=== PATIENT | female | born 1945 | race Caucasian/White ===

== ENCOUNTER → 2018-07-15 15:07 | Outpatient (CLI) | payer MEDICARE, SELFPAY ==
--- NOTE | 2018-07-15 15:12 | CT_ITS ---
CT lower leg LT wo con INDICATION: Pain and swelling, redness, cellulitis left lower leg with open sores ITS.REASON: CELLULITIS OF LT LOWER LEG ORDERING PHYSICIAN: Viry Douglas PATIENT AGE: 73 years COMPARISON: None TECHNIQUE: Axial images are obtained without contrast from the knee to the mid ankle. Sagittal and coronal reformatted images are reviewed as well. All CT scans at the facility use one or more dose reduction, viz: automated exposure control, ma/kV adjustment per patient size (including targeted exams where dose is matched to indication, i.e. head), or iterative reconstruction technique. FINDINGS: There is a total knee prosthesis present. Artifact is present from prosthesis. The tibia and fibula have an unremarkable appearance. No lytic or blastic changes are evident. The knee prosthesis appears to be in good position. No fractures are evident. There is some pretibial calcific densities consistent with small phleboliths. No bony erosive changes. There is some mild edema along the lateral aspect of the leg. No localized fluid collections. No soft tissue masses. No soft tissue gas. IMPRESSION: 1. Status post total replacement. The alignment of the prosthesis. 2. Mild soft tissue swelling along the lateral aspect of the ankle and anterior ankle. 3. No evidence of acute osteomyelitis or abscess.
== END ==
PROVIDERS: Family Provider Internal Medicine Adolescent Medicine; PCP Nurse Practitioner Family; Visit Provider Nurse Practitioner Family
DX: L03.116 Cellulitis of left lower limb (principal)
CPT/HCPCS: 73700

== ENCOUNTER → 2018-09-22 11:16 | Outpatient (CLI) | payer MEDICARE, SELFPAY ==
[2018-09-22 13:50] LABS: Alanine Aminotransferase 29 U/L (12-78); Albumin Level 3.9 gm/dL (3.4-5.0); Albumin/Globulin Ratio 1.3 (1.1-1.8); Alkaline Phosphatase 131 U/L (46-116); Anion Gap 14.5 mEq/L (5-15); Aspartate Amino Transferase 20 U/L (15-37); Bilirubin,Total 0.4 mg/dL (0.2-1.0); Blood Urea Nitrogen 13 mg/dL (7-18); Calcium 9.4 mg/dL (8.5-10.1); Carbon Dioxide 27 mmol/L (21.0-32.0); Chloride 104 mmol/L (98-107); Creatinine,Serum 0.87 mg/dL (0.55-1.02); Estimated Glomerular Filt Rate 63 ml/min (>60); GFR (African American) 77 ML/MIN (>60); Globulin 3.1 gm/dl (1.3-3.2); Glucose 92 mg/dL (74-106); Potassium 4.5 mmoL/L (3.5-5.1); Sodium 141 mmol/L (136-145); Thyroid Stimulating Hormone 2.33 uIU/ml (0.358-3.740)
[2018-09-24 06:07] LABS: H. pylori Breath Test Negative (Negative)
== END ==
PROVIDERS: Visit Provider Nurse Practitioner Family
DX: E03.4 Atrophy of thyroid (acquired) (principal); K21.9 Gastro-esophageal reflux disease without esophagitis; J06.9 Acute upper respiratory infection, unspecified
CPT/HCPCS: 36415; 80053; 83013; 84443

== ENCOUNTER → 2019-11-18 14:43 | Outpatient (CLI) | payer MEDICARE, SELFPAY ==
--- NOTE | 2019-11-18 14:49 | XR_ITS ---
PROCEDURE: XR FOOT WT BEARING RT 3V CLINICAL INDICATION: post-op COMPARISON: No exams were available for comparison FINDINGS: No fracture or dislocation. No lytic or blastic change. There is mild demineralization. 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 No erosive changes evident. Other findings:Small degenerative plantar calcaneal spur. IMPRESSION: Mild degenerative findings. No acute bone pathology. Dictated by: Sly Alvarez 11/18/2019 16:42 Electronically signed by Sly Alvarez in [facility] 11/18/2019 16:42
--- NOTE | 2019-11-18 14:49 | XR_ITS ---
PROCEDURE: XR FOOT WT BEARING LT 3V CLINICAL INDICATION: post-op COMPARISON: No exams were available for comparison FINDINGS: No fracture or dislocation. No lytic or blastic change. There is mild demineralization. There is mild osteoarthritis at the 1st metatarsophalangeal joint. Sclerotic focus involving the distal aspect of the lateral middle phalanx of 2nd digit may represent a benign bone island or osteoblastic activity associated with old healed fracture. No erosive changes evident. Other findings:None. IMPRESSION: No acute findings. Dictated by: Sly Alvarez 11/18/2019 16:30 Electronically signed by Sly Alvarez in [facility] 11/18/2019 16:30
== END ==
PROVIDERS: PCP Nurse Practitioner Family; Visit Provider Podiatrist
DX: M79.672 Pain in left foot (principal); M79.671 Pain in right foot
CPT/HCPCS: 73630

== ENCOUNTER → 2020-09-04 09:53 | Outpatient (CLI) | payer MEDICARE, SELFPAY ==
--- NOTE | 2020-09-04 09:59 | US_ITS ---
PROCEDURE: US ABDOMEN COMPLETE CLINICAL INDICATION: ABD PAIN COMPARISON: No exams were available for comparison FINDINGS: PANCREAS: Unremarkable. No obvious mass or abnormal fluid collection. No ductal dilatation LIVER: No focal liver lesions demonstrated. Homogeneous echogenicity. No intrahepatic biliary ductal dilatation evident. There is appropriate direction of blood flow within a non dilated portal vein RIGHT KIDNEY: Unremarkable. Normal size and echogenicity. No hydronephrosis LEFT KIDNEY: Unremarkable. Normal size and echogenicity. No hydronephrosis GALLBLADDER: No gallstones, gallbladder wall thickening, pericholecystic fluid, or biliary dilatation. AORTA: No evidence of aneurysmal dilatation. SPLEEN: Unremarkable. Normal size and echogenicity ASCITES: None demonstrated. IMPRESSION: Unremarkable abdominal ultrasound Dictated by: Sixto Ernst MD 09/04/2020 16:13 Sixto Ernst MD in [facility] 09/04/2020 16:13
[2020-09-04 11:30] LABS: Basophils % 0.8 % (0.1-2.0); Eosinophils # 0.2 K/mm3 (0.0-0.4); Eosinophils % 3.3 % (0.1-12.0); Hematocrit 46.9 % (37.0-47.0); Hemoglobin 15.6 g/dL (12.2-16.2); Lymphocytes # 2.3 K/mm3 (0.7-4.5); Lymphocytes % 39.3 % (10-50); Mean Corpuscular HGB Conc 33.2 g/dL (31.8-35.4); Mean Corpuscular Hemoglobin 29.1 pg (27.0-31.2); Mean Corpuscular Volume 87.7 fl (81-99); Mean Platelet Volume 8.4 fl (7.4-10.4); Monocytes # 0.5 K/mm3 (0.1-1.0); Monocytes % 8.9 % (1.7-9.3); Neutrophils # 2.8 K/mm3 (1.8-7.8); Neutrophils % 47.8 % (37.0-80.0); Platelet Count 332 K/mm3 (142-424); Red Blood Count 5.35 M/mm3 (4.20-5.40); Red Cell Distribution Width 14.4 % (11.5-17.5); White Blood Count 5.8 K/mm3 (4.8-10.8)
[2020-09-04 12:52] LABS: Chloride 103 mmol/L (98-107); Potassium 4.7 mmoL/L (3.5-5.1); Sodium 141 mmol/L (136-145)
[2020-09-04 12:55] LABS: Alanine Aminotransferase 17 U/L (12-78); Albumin Level 4.7 g/dl (3.5-5.0); Albumin/Globulin Ratio 1.7 (1.1-1.8); Alkaline Phosphatase 122 U/L (38-126); Amylase 72 U/L (30-110); Anion Gap 15.7 mEq/L (5-15); Aspartate Amino Transferase 30 U/L (14-36); Bilirubin,Total 0.9 mg/dl (0.2-1.3); Blood Urea Nitrogen 18 mg/dl (7-17); Calcium 9.9 mg/dl (8.4-10.2); Carbon Dioxide 27 mmol/L (22.0-30.0); Estimated Glomerular Filt Rate 70 ml/min (>60); GFR (African American) 84 ML/MIN (>60); Globulin 2.8 g/dL (1.3-3.2); Glucose 87 mg/dl (74-100); Lipase 172 U/L (23-300); Total Protein,Serum 7.5 g/dl (6.3-8.2)
[2020-09-06 10:47] LABS: H. pylori Breath Test Negative (Negative)
== END ==
PROVIDERS: PCP Nurse Practitioner Family; Visit Provider Nurse Practitioner Family
DX: R10.10 Upper abdominal pain, unspecified (principal)
CPT/HCPCS: 36415; 76700; 80053; 82150; 83013; 83690; 85025

== ENCOUNTER → 2020-11-22 08:41 | Outpatient (CLI) | payer MEDICARE, SELFPAY ==
[2020-11-22 09:32] LABS: Coronavirus 19 IgG Antibody Positive (Negative); Coronavirus 19 IgM Antibody Negative (Negative)
== END ==
PROVIDERS: Visit Provider Internal Medicine Gastroenterology
DX: Z01.812 Encounter for preprocedural laboratory examination (principal); Z20.822 Contact with and (suspected) exposure to COVID-19; Z86.16 Personal history of COVID-19; Z13.810 Encounter for screening for upper gastrointestinal disorder; Z12.11 Encounter for screening for malignant neoplasm of colon; R13.10 Dysphagia, unspecified; R14.0 Abdominal distension (gaseous)
CPT/HCPCS: 36415; 86328

== ENCOUNTER 2020-11-24 09:09 | Day surgery (SDC) | payer MEDICARE, SELFPAY ==
[2020-11-16 13:34] VITALS: BMI 21.4
[2020-11-24 10:11] VITALS: BP 170/69; PULSE 99; RESP 18; TEMP 38.4; O2SAT 93
[2020-11-24 10:37] VITALS: O2SAT 97
--- NOTE | 2020-11-24 10:40 | P.PN_ITS ---
[facility] Anesthesia Checklist - Patient Identification Patient Identification: Arm Band - Structural Data Admitted From: Home Planned Operative Procedure/s: egd colon Consent for Planned Operative Procedure(s) Verified: Yes Verified Documents: Surgical Consent - Anesthesia Plan Anesthesia Risk discussed: Yes Anesthesia Plan: Verified ASA Class: II Anesthesia Type: General [facility] History I have reviewed the patient's past medical history: Yes Medical History: Reports:: MRSA Denies:: Cancer, Diabetes Mellitus Type 1, Diabetes Mellitus Type 2, Internal Pacemaker, Seizures *Have you ever received a pneumonia vaccine?: Yes *Have you received a flu vaccine this season?: Yes Other Medical History: Reports: Thyroid Disease Anesthesia experience/problems:: none Laterality Cases: Bilateral: Cataract, Total Knee Replacement Other Surgeries: Yes: Hysterectomy-Total, Other (R rotator cuff, 2 back surgeries). No: Pacemaker Amputation: No Fractures: No - *Social History Last grade of school completed: Some college Smoking Status: Never smoker Alcohol Intake: never Alcohol Intake Frequency:: holidays/special occasions only Substance Use Type: denies use *Occupational Status:: employed Housing: house Household Members: spouse *Travel in the last 8 weeks: None Family Hx:: Diabetes, Heart Attack
--- NOTE | 2020-11-24 10:42 | HMH.PROC ---
[facility] Procedure Note Procedure Note:: Upper Endoscopy Procedure Report: Esophagogastroduodenoscopy with cold biopsies and TTS balloon dilation Endoscopost: Sarkis Heaton II, MD Referring Physician: RADHIKA Fisher Date of Procedure: 11/24/2020 Equipment: Olympus GIF 180 standard upper endoscope Sedation: MAC sedation Indications: Mrs. Hernandez is a 75-year-old female with a long history of reflux and IBS. The patient has been on PPI therapy and H2 antagonist for years. She had been seen by Dr. Gustabo Hines previously. The patient has not had a colonoscopy in nearly 30 years. She also has not had an upper endoscopy for many years. The patient does report epigastric and left upper quadrant abdominal pain that can be sharp. She has some bloating. She also has struggled with heartburn and reflux. She does take OTC omeprazole by mouth twice daily. She does have some dysphagia which has worsened. She had a normal abdominal ultrasound and normal labs including normal liver and pancreatic chemistries. Her H. pylori breath testing was normal. She does have some chronic intermittent diarrhea. Procedure: Prior to the procedure, a history and physical exam was performed, and patient's medications and allergies were reviewed. The risks, benefits and alternatives of the sedation and procedure were discussed with the patient. All questions were answered and informed consent was obtained. The patient was brought to the procedure room. Patient identification and proposed procedure were verified by the physician and the nurse. The patient was placed in a left lateral decubitus position and the scope was passed under direct vision. Throughout the procedure, the patient's blood pressure, pulse, and oxygen saturations were monitored continuously. The upper GI endoscopy was accomplished without difficulty. The patient tolerated the procedure well. Findings: The scope was passed directly into the upper esophagus and advanced to the third portion of the duodenum. The post bulbar duodenum and duodenal bulb were normal with normal mucosa and conniventes. Cold biopsies were taken from the post bulbar duodenum to rule out celiac disease. The scope was withdrawn through a normal duodenal bulb and pylorus into the stomach. There was some mild to moderate linear reactive gastropathy of the antrum and body with bile reflux. The remainder of the antrum, body and fundus of the stomach were grossly normal. Upon retroflexion there was a very small sliding 1 to 2 cm hiatal hernia. 2 biopsies were taken in the antrum and along the lesser curvature for histology to rule out gastritis and/or H pylori. The scope was then withdrawn into the esophagus. There was no evidence of reflux esophagitis or Villatoro's. There was no Schatzki's ring. There was a serrated Z-line. Biopsies were taken at the GE junction. There were tertiary contractions and evidence of moderate esophageal dysmotility. The entire esophagus was dilated to 60 Gu[place]ian/20 mm with a TTS hydrostatic balloon. There was some resistance at the cricopharyngeus/cricopharyngeal spasm. The remainder of the esophageal mucosa was normal. Impression: 1. Cricopharyngeal spasm status post dilation to 20 mm 2. Nonerosive GERD with moderate esophageal dysmotility and very small sliding hiatal hernia 3. Bile reflux with mild to moderate linear reactive gastropathy Plan: I will follow-up the biopsies. The patient does have some functional dyspepsia and functional GERD. We will discuss dietary measures and treatment options. I will proceed with diagnostic colonoscopy because of her chronic diarrhea.
--- NOTE | 2020-11-24 11:17 | HMH.PROC ---
[facility] Procedure Note Procedure Note:: Colonoscopy Procedure Report: Colonoscopy with cold snare polypectomy and cold biopsies Endoscopist: Sarkis Heaton II, MD Referring physician: RADHIKA Fisher Date of Procedure: November 24, 2020 Equipment: Olympus 180 variable stiffness pediatric colonoscope Sedation: MAC sedation Indication: Mrs. Hernandez is a 75-year-old female with chronic irritable bowel syndrome and diarrhea. She did receive mesalamine and improved. She continues to have bloating, bowel urgency and bowel control difficulty. She also reports epigastric and left upper quadrant abdominal pain. She had lost some weight but this has stabilized. She reports no rectal bleeding or family history of colon cancer. She does state that her last colonoscopy was 15 to 30 years ago (Dr. Gustabo Hines) and she primarily has declined colonoscopy because of difficulty tolerating the bowel preparation. Procedure: Prior to the procedure, a history and physical exam was performed, and patient's medications and allergies were reviewed. The risks, benefits and alternatives of the sedation and procedure were discussed with the patient. All questions were answered and informed consent was obtained. The patient was brought to the procedure room. Patient identification and proposed procedure were verified by the physician and the nurse. The patient was placed in a left lateral decubitus position and the scope was passed under direct vision. Throughout the procedure, the patient's blood pressure, pulse, and oxygen saturations were monitored continuously. The colonoscopy was accomplished without difficulty. The patient tolerated the procedure well. Findings: On digital rectal examination there was normal rectal tone. There were no external hemorrhoids. The colonoscope was introduced through the anal canal to the rectum and advanced to the cecum. The ileocecal valve and appendiceal orifice were identified. The scope was advanced a short distance into the ileum which appeared grossly normal. The scope was then withdrawn into the colon. There were 2 polyps in the cecum (4 and 6 mm) which were both removed via cold snare polypectomy. There were moderately scattered diverticuli especially in the right colon greater than the left colon (pandiverticulosis) and cold biopsies were taken from the right colon to rule out microscopic colitis. The remainder of the colonic mucosa was normal. The rectum itself was normal. Upon retroflexion within the rectum there were grade 1-2 internal hemorrhoids. The preparation was excellent throughout with [place] Preparation Score of 9. The cecal time was 12 minutes. Impression: 1. Colonic polyps x2 2. Right-sided diverticulosis 3. Grade 1-2 internal hemorrhoids Plan: I will follow-up the biopsies and polyp histology. I would encourage bulk fiber and IBgard. If the biopsies show evidence of microscopic (collagenous or lymphocytic) colitis, I would recommend budesonide. If the biopsies are normal, I would consider antispasmodic (Levsin, Librax or Bentyl) or Viberzi.
[2020-11-24 11:18] VITALS: BP 93/46; PULSE 86; RESP 18; TEMP 37.7; O2SAT 95
[2020-11-24 11:28] VITALS: BP 105/51; PULSE 78; RESP 18; O2SAT 97
[2020-11-24 11:38] VITALS: BP 113/54; PULSE 77; RESP 18; O2SAT 96
[2020-11-24 12:10] VITALS: BP 108/39; PULSE 74; RESP 18; O2SAT 97
== END 2020-11-24 12:10 | disposition home or self-care (01) ==
LOC: OUTP 09:10
PROVIDERS: PCP Nurse Practitioner Family; Visit Provider Internal Medicine Gastroenterology
PROC: 0DJ08ZZ Inspection of Upper Intestinal Tract, Via Natural or Artificial Opening Endoscopic (ICD-10-PCS; CPT 43235; principal; 2020-11-24 10:30)
DX: K58.0 Irritable bowel syndrome with diarrhea (principal); J39.2 Other diseases of pharynx; K22.4 Dyskinesia of esophagus; K30 Functional dyspepsia; K44.9 Diaphragmatic hernia without obstruction or gangrene; K31.9 Disease of stomach and duodenum, unspecified; K63.5 Polyp of colon; K57.30 Diverticulosis of large intestine without perforation or abscess without bleeding; K64.0 First degree hemorrhoids; E03.9 Hypothyroidism, unspecified; Z88.2 Allergy status to sulfonamides; Z88.1 Allergy status to other antibiotic agents
CPT/HCPCS: 43239; 43249; 45380; 45385; 88305; C1726

== ENCOUNTER 2023-04-19 22:55 | Emergency (ER) | payer MEDICARE, SELFPAY ==
[2023-04-19 22:56] VITALS: BP 191/74; PULSE 73; RESP 18; TEMP 36.7; O2SAT 97; BMI 24.4
[2023-04-19 23:05] VITALS: BMI 24.4
--- NOTE | 2023-04-19 23:05 | XR_ITS ---
PROCEDURE INFORMATION: Exam: XR Right Shoulder Exam date and time: 04/19/2023 11:04 PM Age: 77 years old Clinical indication: Injury or trauma; Fall TECHNIQUE: Imaging protocol: Radiologic exam of the right shoulder. Views: 1 view. Total images: 1 COMPARISON: No relevant prior studies available. FINDINGS: Bones/joints: Acute dislocation of the glenohumeral joint, presumed anterior subcoracoid on the single projection. Apparent Hill-Sachs deformity of the humeral head. Surgical anchor in the humeral head. AC joint space is preserved. Bones are osteopenic. Soft tissues: Soft tissue deformity. IMPRESSION: 1. Acute dislocation of the glenohumeral joint, presumed anterior subcoracoid on the single projection. 2. Hill-Sachs fracture deformity humeral head.
[2023-04-19 23:10] VITALS: BP 187/67; PULSE 72; RESP 14; O2SAT 93
[2023-04-19 23:15] VITALS: BP 167/71; PULSE 68; RESP 12; O2SAT 95
[2023-04-19 23:20] VITALS: BP 157/72; PULSE 76; RESP 14; O2SAT 95
[2023-04-19 23:25] VITALS: BP 148/81; PULSE 77; RESP 12; O2SAT 95
[2023-04-19 23:29] LABS: Basophils % 0.3 % (0.1-2.0); Eosinophils # 0.3 K/mm3 (0.0-0.4); Eosinophils % 2.9 % (0.1-12.0); Hemoglobin 14.2 g/dL (12.2-16.2); Lymphocytes # 2.6 K/mm3 (0.7-4.5); Lymphocytes % 27.5 % (10-50); Mean Corpuscular HGB Conc 32.3 g/dL (31.8-35.4); Mean Corpuscular Hemoglobin 27.3 pg (27.0-31.2); Mean Corpuscular Volume 84.6 fl (81-99); Mean Platelet Volume 8.1 fl (7.4-10.4); Monocytes # 0.7 K/mm3 (0.1-1.0); Monocytes % 7.2 % (1.7-9.3); Neutrophils # 5.9 K/mm3 (1.8-7.8); Neutrophils % 62.1 % (37.0-80.0); Platelet Count 314 K/mm3 (142-424); Red Blood Count 5.21 M/mm3 (4.20-5.40); Red Cell Distribution Width 14.3 % (11.5-17.5); White Blood Count 9.6 K/mm3 (4.8-10.8)
[2023-04-19 23:30] VITALS: BP 143/55; PULSE 77; RESP 12; O2SAT 95
[2023-04-19 23:36] LABS: Alanine Aminotransferase 30 U/L (12-78); Albumin Level 4.9 g/dl (3.5-5.0); Albumin/Globulin Ratio 1.6 (1.1-1.8); Alkaline Phosphatase 142 U/L (38-126); Anion Gap 19.6 mEq/L (5-15); Aspartate Amino Transferase 56 U/L (14-36); Bilirubin,Total 0.9 mg/dl (0.2-1.3); Blood Urea Nitrogen 17 mg/dl (7-17); Calcium 9.1 mg/dl (8.4-10.2); Carbon Dioxide 23 mmol/L (22.0-30.0); Chloride 102 mmol/L (98-107); Creatinine Clearance Estimated 34 mL/min (50-200); Estimated Glomerular Filt Rate 43 ml/min (>60); GFR (African American) 52 ML/MIN (>60); Globulin 3.1 g/dL (1.3-3.2); Glucose 123 mg/dl (74-100); Potassium 4.6 mmoL/L (3.5-5.1); Sodium 140 mmol/L (136-145)
--- NOTE | 2023-04-19 23:37 | HMH.EDFALL ---
Discharge Plan Disposition Patient Disposition: Home, Self-Care Chief Complaint: Fall Prescriptions Prescriptions: No Action levothyroxine 75 mcg tablet 75 mcg PO DAILY ropinirole 2 mg tablet 2 mg PO DAILY gabapentin 300 MG capsule 900 mg PO DAILY omeprazole 20 MG capsule,delayed release(DR/EC) 40 mg PO DAILY flaxseed 300 ML liquid 300 ml MM DAILY vit D3-vit C-ctljwluyl-qude 1 EACH tablet 1 each PO DAILY calcium-vitamin D3-vitamin K 1 EACH tablet,chewable 1 each PO BID Referrals Follow up/Referrals: Viry Douglas [Primary Care Provider] - See instructions Gregor Chavez JR, MD [Physician] - See instructions Clinical Impressions Clinical Impression: Anterior shoulder dislocation, Hill Sachs deformity, right Instructions Patient Instructions: Moderate Sedation, DI for Shoulder Dislocation Discharge ED Provider: Aleja (ED)Jasper HPI General Chief Complaint: Fall Stated Complaint: Fell Right shoulder pain 2200 Time Seen by Provider: 04/19/23 23:00 Mode of Arrival: Wheelchair Source of Information: Patient, Relative and Medical Record Limitations: No Limitations Description of Symptoms (Recalled from ER Triage Doc. by RN): pt states that she tripped over a stool in garage and landed on rt shoulder. pt c/o rt shoulder pain History of Present Illness HPI Narrative: trip injury and injury to rt shoulder marcus STEEN complaint: fall Onset (ago): hour(s) Fall from: standing Fall witnessed: yes, by family Place fall occurred: home Loss of consciousness: none Prolonged down time: no Symptoms prior to fall: none Context: tripped/slipped Location of injury - extremities: Right: shoulder Severity: moderate Associated symptoms (after fall): denies Related Data Home Medications Medication Instructions Recorded Confirmed levothyroxine 75 mcg tablet 75 mcg PO DAILY thyroid 11/18/19 11/24/20 ropinirole 2 mg tablet 2 mg PO DAILY rls 11/18/19 11/24/20 calcium-vitamin D3-vitamin K 500 1 each PO BID Supplement 10/10/20 11/24/20 mg-1,000 unit-40 mcg chewable tablet flaxseed 300 ml MM DAILY Supplement 10/10/20 11/24/20 gabapentin 300 mg capsule 900 mg PO DAILY Pain parathesia 10/10/20 11/24/20 omeprazole 20 mg capsule,delayed 40 mg PO DAILY stomach 10/10/20 11/24/20 release vitamin D3 500 unit-vit K 500 1 each PO DAILY Supplement 10/10/20 11/24/20 mcg-berberine 90 mg-hops 370 mg tablet Allergies Allergy/AdvReac Type Severity Reaction Status Date / Time cefuroxime [From Ceftin] Allergy Intermediate Diarrhea Verified 11/24/20 10:06 Cephalosporins Allergy Intermediate Hives Verified 11/24/20 10:06 doxycycline Allergy Intermediate Hives Verified 11/24/20 10:06 levofloxacin [From Levaquin] Allergy Intermediate Hypertensio Verified 11/24/20 10:06 n nitrofurantoin Allergy Intermediate Hives Verified 11/24/20 10:06 Tetracyclines Allergy Intermediate Hives Verified 11/24/20 10:06 povidone-iodine Allergy Unknown Rash Verified 11/24/20 10:06 [From Betadine] soap [From Betadine] Allergy Unknown Rash Verified 11/24/20 10:06 Sulfa (Sulfonamide Allergy Unknown Hives Verified 11/24/20 10:06 [address]) [facility] Disclaimer: The information contained in this section may have been updated after the patient was seen, as this information can be updated by other users. Social History Smoking Status: Never smoker second hand exposure: No alcohol intake: never substance use type: denies use current occupational status: employed Travel in the last 8 weeks: None household members: spouse housing: house current occupation: clerical current occupational exposures/hazards: No caffeine: No ROS Obtained: Yes All systems reviewed & no additional complaints except as documented Physical Exam General General appearance: alert Head Head exam: normocephalic Eye Eye exam: Present PERRL and EOMI ENT ENT exam: Present mucou
--- NOTE | 2023-04-19 23:40 | XR_ITS ---
PROCEDURE INFORMATION: Exam: XR Right Shoulder Exam date and time: 04/19/2023 11:39 PM Age: 77 years old Clinical indication: Injury or trauma; Fall; Dislocation; Humerus, proximal end; Right; Additional info: Post reduction TECHNIQUE: Imaging protocol: Radiologic exam of the right shoulder. Views: 2 or more views. Total images: 2 COMPARISON: CR XR SHOULDER RT 1V 04/19/2023 11:04 PM FINDINGS: Bones/joints: Satisfactory alignment of the glenohumeral joint following closed reduction. Hill-Sachs fracture deformity humeral head. Surgical anchor humeral head. Small enthesophyte olecranon process. AC joint space is maintained. Mild osteopenia. Soft tissues: Unremarkable. IMPRESSION: 1. Satisfactory alignment of the glenohumeral joint following closed reduction. 2. Hill-Sachs fracture deformity lateral humeral head.
[2023-04-20 00:13] VITALS: BP 122/46; PULSE 70; RESP 15; TEMP 36.7; O2SAT 96
== END 2023-04-20 00:27 | disposition home or self-care (01) ==
PROVIDERS: Emergency Provider Emergency Medicine; PCP Nurse Practitioner Family
DX: S42.291A Other displaced fracture of upper end of right humerus, initial encounter for closed fracture (principal); S43.004A Unspecified dislocation of right shoulder joint, initial encounter; W01.0XXA Fall on same level from slipping, tripping and stumbling without subsequent striking against object, initial encounter
CPT/HCPCS: 23650; 99152; 73020; 73030; 80053; 85025; 96361; 96374; 96375; 99285; J2405

== ENCOUNTER 2023-09-08 13:00 | Outpatient (RCR) | payer MEDICARE, SELFPAY | END 2023-10-09 17:10 | disposition home or self-care (01) | LOC: PT 13:00 | PROVIDERS: PCP Nurse Practitioner Family; Visit Provider Orthopaedic Surgery | DX: M25.562 Pain in left knee (principal); Z96.652 Presence of left artificial knee joint | CPT/HCPCS: 97010; 97014; 97110; 97163; 97164; 97530; G0283 ==

== ENCOUNTER 2024-11-16 10:54 | Outpatient (CLI) | payer MEDICARE, SELFPAY ==
--- NOTE | 2024-11-16 | CA_ITS ---
APPROVED REPORT Exam: Pharmacologic Technologist: Arleen Rajput Ht: 5 ft 0 in Wt: 125 lbs BSA: 1.53 m2 HR: 57 bpm BP: 185/63 mmHg Stress Test Details Test: Lexiscan HR Resting HR: 57 bpm Max Heart Rate (APMHR): 139.139149 bpm Max HR Achieved: 82 bpm Target HR (85% APMHR): 118.526562 bpm % of APMHR: 58.99 Recovery HR: 73 bpm BP Resting BP: 185.0/63.0 mmHg Max BP: 185.0/63.0 mmHg Recovery BP: 174.0/72.0 mmHg ECG Resting ECG: Sinus bradycardia Stress ECG Conclusion Symptoms: Shortness of breath Arrhythmias/Ectopy: - ST-T Changes: Less than [address] depression Conclusion: EKG portion unremarkable due to Lexiscan infusion. Electronically signed by : Sherley Mcdaniel MD 11/17/2024 10:12:35
--- NOTE | 2024-11-16 11:00 | CA_ITS ---
APPROVED REPORT EXAM: Comprehensive 2D, Doppler, and color-flow Echocardiogram Gas Charger: Minnie Kelley RT(R) Ht: 5 ft 0 in Wt: 125lbs BSA: 1.53 BP: 143/55 mmHg Indications: CP, ex smoker, edema, METZGER, family history of HD. 2D Dimensions LVEF (Calloway's) 60.80 % F: 54 - 74 LV Volume 60.50 mL F: 46 - 106 LV Volume Index 39.5 mL/m2 F: 29 - 61 LA Volume 20.70 mL LA Volume Index 13.53 mL/m2 (M/F) 16-34 EF AP4 59.20 % EF AP2 62.0 % EF BP 60.8 % GL Strain -20.9 % M-Mode Dimensions RVDd 2.28 cm (0.9-2.6) LA Diam 3.23 cm (1.9-4.0) LVDd 4.12 cm (3.5-5.7) LVDs 3.32 cm (3.5-5.7) IVSd 0.74 cm (0.6-1.1) PWd 0.64 cm (0.6-1.1) EF (Teich) 40.30% FS 19.40% EDV (Teich) 75.10 mL ESV (Teich) 44.80 mL LV Diastology E Decel Time 150 (160-240 msec) E/A Ratio 1.46 Aortic Valve VELVET Index 1.85 cm2/m2 AoV Peak Master. 115.0 (50-130 cm/s) AI PHT 566.00 ms AO Peak GR. 5.30 mmHg AO Mean GR. 2.60 (<5 mmHg) AO VTI 26.6 (18-25 cm) VELVET (VTI) 2.90 (2.5-4.5 cm2) Mitral Valve MV A Velocity 81.0 (40-130 cm/s) E/A Ratio 1.46 Tricuspid Valve TR P. Velocity 299.00 cm/s RAP Estimate 10.00 mmHg RVSP 45.60 mmHg Left Ventricle The left ventricle is normal size. The left ventricular systolic function is normal. The left ventricular ejection fraction is within the normal range. Proximal septal thickening is noted. There is normal LV segmental wall motion. The left ventricular diastolic function is normal. LVEF is 55%. Right Ventricle The right ventricle is normal size. The right ventricular systolic function is normal. Atria Left atrium is mildly dilated. Right atrium is mildly dilated. There is no Doppler evidence of interatrial shunt. Aortic Valve Aortic valve is mildly thickened. There is no aortic valvular stenosis. Moderate aortic regurgitation. Mitral Valve The mitral valve is normal in structure. No evidence of mitral valve stenosis. Mild mitral regurgitation. Tricuspid Valve Tricuspid valve is grossly normal in structure and function. Mild to moderate tricuspid regurgitation. RVSP is 30-35 mmHg. Pulmonic Valve The pulmonary valve is normal in structure. Trace pulmonic regurgitation. Great Vessels The aortic root is normal in size. IVC is normal in size and collapses >50% with inspiration. Pericardium There is no pericardial effusion. Other Information Study Quality: Fair Conclusion Normal biventricular systolic function. Mild biatrial dilation. Moderate aortic regurgitation. Mild to moderate TR. Mild MR. In the setting of moderate aortic regurgitation, outpatient evaluation with cardiac MRI (cardiomyopathy protocol) is suggested to further quantify the severity of the AI, as well as LV dimensions. Electronically signed by : Sherley Mcdaniel MD 11/23/2024 13:18:40
--- NOTE | 2024-11-16 11:45 | NM_ITS ---
APPROVED REPORT Exam: Nuclear Stress Test Indication: Chest pain, SOB, Family history Patient Location: Outpatient Stress Tech: Arleen Rajput NM Tech:Monica De La Rosa, ARRT, RT (R)(N) Ht: 5 ft 0 in Wt: 125 lbs Bra Size: 34A HR: 58 bpm BP: 189/66 mmHg BSA: 1.53 m2 TID: 1.22 History: Chest pain, SOB, Family history Procedure: Patient received 0.4 mg of intravenous Lexiscan, resting heart rate 58 bpm, resting blood pressure 189/66 mmHg, with Lexiscan maximum heart rate achieved was 84 bpm which is % of the maximum predicted heart rate and blood pressure was 174/72 mmHg. With Lexiscan, patient denied any complaint of chest pain. Cardiac Stress and Resting SPECT Images: Cardiac Stress and Resting SPECT images were obtained using technetium 99m Myoview 32.0 mCi stress and 10.33 mCi at rest. Resting and stress imaging in supine and prone positions demonstrate no evidence of fixed or reversible perfusion defects. There is increase in transient ischemic dilatation ratio (TID 1.22), suggestive of possible multivessel disease or balanced ischemia. Gated imaging demonstrates normal global and regional LV systolic function. LVEF is calculated at 69%. Conclusion: No evidence of fixed or reversible perfusion defects. There is increase in transient ischemic dilatation ratio (TID 1.22), suggestive of possible multivessel disease or balanced ischemia. Gated imaging demonstrates normal global and regional LV systolic function. LVEF is calculated at 69%. In the setting of presence of TID on nuclear stress testing but with otherwise normal LV systolic function, further evaluation noninvasively with CCTA may be suggested prior to proceeding with invasive coronary angiography, if clinically feasible and indicated. Electronically signed by : Sherley Mcdaniel MD 11/17/2024 10:12:12
[2024-11-16] MEDS: ISOTOPE MYOVIEW (PER STUDY) 1 DOSE IV (13:12)
[2024-11-16] MEDS: REGADENOSON 0.4MG/5ML SYRINGE 0.4 MG IV (13:12)
[2024-11-16] MEDS: SODIUM CHLORIDE 0.9% 10ML SYR (RAD ONLY) 10 ML IV ×2 (13:12)
== END 2024-11-16 23:59 | disposition home or self-care (01) ==
LOC: RT 10:56
PROVIDERS: PCP Nurse Practitioner Family; Visit Provider Nurse Practitioner Family
DX: I51.7 Cardiomegaly (principal); R07.9 Chest pain, unspecified
CPT/HCPCS: 78452; 93017; 93018; 93306; A9502; J2785

== ENCOUNTER 2024-12-03 07:22 | Outpatient (CLI) | payer MEDICARE, SELFPAY ==
--- NOTE | 2024-12-03 07:23 | CT_ITS ---
APPROVED REPORT Pcu Rn: CLINICAL INDICATION Chest Pain, presence of TID on nuclear stress test TECHNIQUE Image Acquisition: A 128 slice MDCT scanner (Movellasa View) was used for data acquisition. A noncontrast coronary calcium scan was performed. A CT attenuation threshold of 130 Hounsfield units (HU) was used for the detection of calcium in contiguous voxels of 1 sq mm in area to be counted as individual lesions. Bolus tracking in the ascending aorta with a threshold of 180 HU was performed. Immediately afterwards, ECG synchronized cardiac CT was then performed from the cardiac base to apex using retrospective gating with ECG tube current modulation. A total of 85 mL of Isovue 370 mg/mL contrast medium was administered at 5 mL/sec followed by a saline flush using a biphasic injection protocol. A tube voltage of 120 KVp was used. The patient received the following medications prior to the cardiac CT. 25 mg of oral metoprolol 15 mg of oral ivabradine 0.4 mg of sublingual nitroglycerin The average heart rate at the time of acquisition was 57 bpm and regular. Image Reconstruction Transaxial images were reconstructed at 0.67 mm slide thickness. Data was reviewed interactively on an advanced workstation capable of 2 and 3-dimensional displays in all conventional reconstruction formats, including multiplanar reformations, maximum intensity projections, curved multiplanar reformations, and volume rendered reconstructions. When applicable, selected routine images describing the relevant coronary anatomy and pathology were saved and sent to PACS. Complications None Technical Quality Overall image quality was good. Coronary artery opacification was adequate. Total DLP (Dose-Length Product) is 1730.1 mGy-cm. The reported value represents the total of one or more individual components during the CT acquisition of this date and at this time, and as such, the same value may appear in more than one CT report depending on the interpreting/reporting physicians. COMPARISON None FINDINGS CT Coronary Calcium Scoring LMA (Left Main Artery) = 0 LAD (Left Anterior Descending) = 4 LCX (Left Coronary Circumflex) = 0 RCA (Right Coronary Artery) = 0 Total Calcium Score = 4 using the AJ-130 method. The observed calcium score of 4 is at 12th percentile for subjects of the same age, sex, and race/ethnicity. The interpretation of the calcium heart score is based on the following continuum*: 0 = no calcified plaque detected (risk of coronary artery disease is very low ??? less than 5%) 1-10 = calcium detected in extremely minimal levels (risk of coronary diseases is still low ??? less than 10%) 11-100 = mild levels of plaque detected with certainty (mild or minimal narrowing of heart arteries is likely) 101-400 = definite,at least moderate levels of plaque detected (relatively high risk of a heart attack within 3-5 years) >401-999 = extensive levels of plaque detected (high risk of heart attack, high levels of vascular disease are present, high likelihood of at least one significant coronary narrowing) *The calcium heart score quantifies the burden of coronary calcification/plaque in the coronary arteries. The calcium heart score is not able to evaluate the presence or burden of non-calcified (i.e. soft) plaque. There is no identifiable calcification in the aortic valve, mitral annulus or mitral valve, pericardium, or myocardium. Coronary CT Angiography The coronary arterial system is right dominant. Quantitative Stenosis Grading: Left Main (LM): The left main originates normally from the left sinus of Valsalva. The LM bifurcates into the left anterior descending artery and left circumflex artery. The LM is patent with no evidence of atherosclerosis. Left Anterior Descending (LAD) and Diagonal Branches: The LAD gives off 3 diagonal branch(es). There is calcified plaque in the proximal LAD segment, with no evidence of luminal stenosis. There is no evidence of LAD-myocardial bridge. Left Circumflex (LCX) and Obtuse Marginals (OM): The LCX is a small caliber vessel. The LCx gives off 1 Obtuse Marginal (OM) branch(es). The LCX and its branches are patent with no evidence of atherosclerosis. Right Coronary Artery (RCA): The RCA originates normally from the right sinus of Valsalva. The RCA gives off a posterior descending artery (PDA) and posterolateral (PL) branches. The RCA and its branches are patent with no evidence of atherosclerosis. Non-Coronary Cardiac Findings: Analysis of the left ventricular (LV) structure and function was performed after 3-D reconstruction of the LV from axial images, with user-corrected automatic contouring for assessment of LV volumes and user-defined reconstruction from oblique planes for measurement of 3-D cardiac structure and function. -The left ventricle systolic function is normal. -There is no left atrial appendage filling defect. Two right pulmonary veins and two left pulmonary veins drain normally into the left atrium. -No pericardial thickening or calcification. -Central and branch pulmonary arteries in the [id number] are unremarkable. -Thoracic aorta within the visualized thoracic aortic-branches in the [id number] is unremarkable. Extracardiac Structures Prominent pulmonary interstitial markings with presence of groundglass opacities bilaterally. IMPRESSION -Presence of coronary calcification with an Agatston score = 4 using the AJ-130 method. -The observed calcium score of 4 is at 12th percentile for subjects of the same age, sex, and race/ethnicity. -No evidence of significant flow-limiting atherosclerosis of the coronary arteries. -CAD-RADS 1. Management recommendations per ACC/AHA guidelines*, as clinically appropriate. -Incidental finding of prominent pulmonary interstitial markings with presence of groundglass opacities bilaterally. Clinical correlation is suggested. *Recommendations: CAD RADS 0: Reassurance. Consider non-atherosclerotic causes of chest pain. CAD RADS 1: Consider non-atherosclerotic causes of chest pain. Consider preventive therapy and risk factor modification. CAD RADS 2: Consider non-atherosclerotic causes of chest pain. Consider preventive therapy and risk factor modification, particularly for patients with nonobstructive plaque in multiple segments. CAD RADS 3: Consider further functional testing. Consider symptom-guided anti-ischemic and preventive pharmacotherapy as well as risk factor modification per published guideline statements. CAD RADS 4A: Consider further functional testing or invasive coronary angiography with revascularization per published guideline statements. Consider symptom-guided anti-ischemic and preventive pharmacotherapy as well as risk factor modification per published guideline statements. CAD RADS 4B: Invasive coronary angiography recommended with revascularization per published guideline statements. Consider symptom-guided anti-ischemic and preventive pharmacotherapy as well as risk factor modification per published guideline statements. CAD RADS 5: Consider invasive angiography and/or viability assessment with revascularization per published guideline statements. Consider symptom-guided anti-ischemic and preventive pharmacotherapy as well as risk factor modification per published guideline statements. CRITICAL RESULT None COMMUNICATION Per this written report The coronary and cardiac findings of this CCTA were reviewed, reported, and signed by Foster Mcdaniel MD (Glass Fitter) Conclusion Electronically signed by : Sherley Mcdaniel MD 12/06/2024 12:52:02
[2024-12-03 07:43] VITALS: BMI 24.0
[2024-12-03] MEDS: METOPROLOL TARTRATE 25MG TABLET 25 MG (07:50)
[2024-12-03] MEDS: IVABRADINE HCL 7.5MG TABLET PO (07:50)
[2024-12-03 08:00] LABS: Chloride 100 mmol/L (98-107); Potassium 3.9 mmoL/L (3.5-5.1); Sodium 137 mmol/L (136-145)
[2024-12-03 08:03] LABS: Anion Gap 12.9 mEq/L (5-15); Blood Urea Nitrogen 18 mg/dl (7-17); Calcium 9.2 mg/dl (8.4-10.2); Carbon Dioxide 28 mmol/L (22.0-30.0); Creatinine Clearance Estimated 39 mL/min (50-200); Estimated Glomerular Filt Rate 80 ml/min (>60); GFR (African American) 97 ML/MIN (>60); Glucose 99 mg/dl (74-100)
[2024-12-03 08:08] VITALS: BP 154/69; PULSE 76; RESP 18; O2SAT 98
[2024-12-03 08:27] VITALS: BP 171/96; PULSE 64; RESP 16; O2SAT 97
[2024-12-03] MEDS: NITROGLYCERIN 0.4MG SL TABLET SL (08:27)
[2024-12-03 08:30] VITALS: BP 140/59; PULSE 64; RESP 16; O2SAT 96
[2024-12-03] MEDS: IOPAMIDOL-370 (76%);100ML BOTTLE 85 ML IV (08:30)
[2024-12-03] MEDS: 0.9 % SODIUM CHLORIDE 50 ML VIAL IV (08:30)
[2024-12-03] MEDS: SODIUM CHLORIDE 0.9% 10ML SYR (RAD ONLY) 10 ML IV (08:30)
[2024-12-03 08:47] VITALS: BP 106/49; PULSE 56; RESP 16; O2SAT 96
[2024-12-03 08:57] VITALS: BP 122/65; PULSE 60; RESP 17; O2SAT 97
== END 2024-12-03 09:02 | disposition home or self-care (01) ==
PROVIDERS: PCP Nurse Practitioner Family; Visit Provider Internal Medicine
DX: R93.1 Abnormal findings on diagnostic imaging of heart and coronary circulation (principal); I20.89 Other forms of angina pectoris; R06.00 Dyspnea, unspecified
CPT/HCPCS: 75574; 80048; Q9967

== ENCOUNTER 2024-12-07 09:52 | Outpatient (CLI) | payer MEDICARE, SELFPAY ==
[2024-12-03 07:41] VITALS: BMI 24.0
[2024-12-07] MEDS: 0.9 % SODIUM CHLORIDE 50 ML VIAL IV (11:46)
[2024-12-07] MEDS: GADOTERIDOL INJ 20ML SYRINGE 12 ML IV (11:46)
== END 2024-12-07 23:59 | disposition home or self-care (01) ==
LOC: RAD 09:53
PROVIDERS: PCP Nurse Practitioner Family; Visit Provider Internal Medicine
DX: I20.89 Other forms of angina pectoris (principal); I35.1 Nonrheumatic aortic (valve) insufficiency
CPT/HCPCS: 75561; A9576

== ENCOUNTER 2025-02-11 08:32 | Outpatient (CLI) | payer MEDICARE, SELFPAY ==
--- NOTE | 2025-02-11 08:35 | CT_ITS ---
FINAL REPORT TECHNIQUE: Pre- and postcontrast images of the abdomen were performed by computed tomography. This study was performed with techniques to keep radiation doses as low as reasonably achievable (ALARA). Individualized dose reduction techniques using automated exposure control or adjustment of mA and/or kV according to the patient's size were employed. CLINICAL HISTORY: abd distention hx of ovarian ca COMPARISON: None FINDINGS: CT ABDOMEN WITH AND WITHOUT CONTRAST: Precontrast examination does not demonstrate any calcified renal stones. The lung bases are clear. The liver is normal in size and attenuation. The gallbladder is present. The spleen is unremarkable. The adrenals are normal. The pancreas is unremarkable. The kidneys enhance appropriately. There is moderate stool present throughout the colon. Scattered diverticula are present in the cecum and ascending portions of the colon. There is diffuse degenerative disc disease noted in the lumbar spine. IMPRESSION: Scattered diverticula are present in the cecum and ascending portions of the colon without acute inflammatory process. Moderate stool is present in the colon. Reviewed, Interpreted and Dictated by Bucky Winchester MD Transcribed by Laury Jeffers Authenticated and [facility]
--- NOTE | 2025-02-11 08:35 | CT_ITS ---
FINAL REPORT TECHNIQUE: Before and after the administration of intravenous contrast, axial images through the chest were performed by computed tomography. This study was performed with techniques to keep radiation doses as low as reasonably achievable, (ALARA). Individualized dose reduction techniques using automated exposure control or adjustment of mA and/or kV according to the patient's size were employed. CLINICAL HISTORY: ABD DISTENSION hx of ovarian ca COMPARISON: None FINDINGS: CT CHEST WITH AND WITHOUT CONTRAST: There are small calcified bilateral hilar nodes noted. The mediastinum is otherwise unremarkable. Bilateral axillary nodes are also present, measuring up to 1.3 cm in size. Multiple calcified granulomas are noted in the lung vance bilaterally. Bilateral subglandular breast implants are present. No confluent infiltrates or effusions are identified. No pericardial effusion is noted. IMPRESSION: No acute intrathoracic abnormality is identified. Bilateral axillary nodes, measuring up to 1.3 cm in size. Reviewed, Interpreted and Dictated by Bucky Winchester MD Transcribed by Laury Jeffers Authenticated and [facility]
[2025-02-11 09:08] LABS: Blood Urea Nitrogen 10 mg/dl (7-17); Estimated Glomerular Filt Rate 60 ml/min (>60); GFR (African American) 73 ML/MIN (>60)
[2025-02-11] MEDS: SODIUM CHLORIDE 0.9% 10ML SYR (RAD ONLY) 10 ML IV (09:48)
[2025-02-11] MEDS: IOPAMIDOL-370 (76%);100ML BOTTLE 75 ML IV (09:48)
== END 2025-02-11 23:59 | disposition home or self-care (01) ==
LOC: RAD 08:33
PROVIDERS: PCP Nurse Practitioner Family; Visit Provider Nurse Practitioner Family
DX: R14.0 Abdominal distension (gaseous) (principal)
CPT/HCPCS: 36415; 71270; 74170; 82565; 84520; Q9967

== ENCOUNTER 2025-06-21 12:45 | Outpatient (CLI) | payer MEDICARE, SELFPAY ==
--- NOTE | 2025-06-21 12:48 | MM_ITS ---
PROCEDURE INFORMATION: Exam: US Right Breast, Complete MG Right Diagnostic Breast Tomosynthesis Exam date and time: 06/21/2025 1:35 PM Age: 79 years old Clinical indication: Right breast palpable lump; Injury or trauma; Fall; Other: Bruising with palp area TECHNIQUE: Imaging protocol: Complete ultrasound of all four quadrants of the right breast and the retroareolar regions, including ultrasound of the axilla when performed. Right Diagnostic tomosynthesis and 2D mammography including computer-aided detection (CAD) when performed. Unilateral or bilateral exam. COMPARISON: MG MM DX IMPLANT RT W/RENZO 06/21/2025 1:01 PM FINDINGS: MAMMOGRAPHY: Breast composition: There are scattered areas of fibroglandular density. Breast mammogram findings: A skin marker is placed over the palpable area of concern. There is underlying fat containing tissue that measures 2.1 cm. This may represent a lipoma. A biopsy tissue marker is seen at the medial aspect of this finding. No abnormal skin thickening or distortion. No suspicious calcifications. There is a retropectoral right breast saline implant that appears intact. ULTRASOUND: Breast ultrasound findings: Ultrasound of the palpable area of concern demonstrates underlying fat density in the region of palpable concern, lower inner quadrant, 4 o'clock axis, 4 cm from the nipple. The findings may indicate a lipoma, measuring 1.4 x 0.9 cm. There is no suspicious mass, shadowing, or distortion. Visualized portions of the implant are within normal limits. No axillary adenopathy. IMPRESSION: 1. Fat containing region in the right breast at the palpable area of concern, 4 o'clock axis, 4 cm from the nipple. This may represent a lipoma. 2. No suspicious findings are seen. 3. Annual bilateral mammographic screening is recommended unless otherwise clinically indicated. ASSESSMENT: BI-RADS Category 2: Benign.
--- OUTSIDE RECORDS SUMMARY | 2025-06-21 12:48 | XMS_ITS | Clinical Summary ---
Author Organization Healthcare Address [address] [place] [address] Care Team Providers Care Chief Ophthalmic Technician Name Role Phone Viry Douglas [employer]IAN Primary Care Provider [phone] Allergies Active Allergy Reactions Criticality Noted Date Comments Cefuroxime Hives Medium 03/02/2015 Doxycycline Hives Medium 03/02/2015 Levofloxacin Hives Medium 03/02/2015 Nitrofurantoin Hives Medium 03/02/2015 Penicillins Rash,Unknown - Patie nt states they do not know rxn details Low 12/15/2008 Sulfacetamide Rash Low 12/15/2008 Tetracycline Rash,Unknown - Patie nt states they do not know rxn details Low 12/15/2008 Medications levothyroxine (Tirosint) 75 MCG capsule Take by mouth 1 (one) time each day before breakfast. Active gabapentin (Neurontin) 300 MG capsule Take 1 capsule (300 mg) by mouth 3 (three) times a day. Active rOPINIRole (Requip) 5 MG tablet Take 1 tablet (5 mg) by mouth every night. Active multivitamin-mi nerals-folic acid-coenzyme q10 (Preservision AREDS 2) capsule Take 2 capsules by mouth 1 (one) time each day. Active CALCIUM CITRATE-VITAMIN D PO Take 600 tablets by mouth 2 (two) times a day. Active cyanocobalamin (Vitamin B-12) 1000 MCG tablet Take 1 tablet (1,000 mcg) by mouth 1 (one) time each day. Active Flaxseed, Linseed, (Flax Seed Oil) 1000 MG capsule Take by mouth 1 (one) time each day. Active omeprazole (PriLOSEC) [address] capsule Take 1 capsule (40 mg) by mouth 2 (two) times a day. Do not crush or chew. Active Elastic Bandages & Supports (Post-OP Shoe/Soft Top Men) misc Use for ambulation on surgical foot as instructed 1 each 3 Active Urea 40 % suspension Apply 1 Application topically 2 (two) times a day. To painful calluses areas or dry skin build up 283 g 11 4 Active terbinafine (LamISIL AT) 1 % cream Applied to area twice daily 6 months. 28 g 11 4 Active Active Problems Problem Noted Date Diagnosed Date Pain of foot 01/15/2024 Tinea unguium 01/15/2024 Corns and callosities 01/15/2024 Family History Medical History Relation Name Comments Conversions - Other Other Family h istory unknown Relation Name Status Comments Other Social History Tobacco Use Types Packs/Day Years Used Date Smoking Tobacco: Former Smokeless Tobacco: Never Tobacco Cessation:Counseling Given: Not Answered Alcohol Use Standard Drinks/Week Comments Yes 0 (1 standard drink = 0.6 oz pur e alcohol) social PHQ-2 Answer Date Recorded Patient Health Questionnaire-2 Score 0 01/15/2024 Comments No Sex and Gender Information Value Date Recorded Sex Assigned at Not on file Legal Sex Female 8:37 PM EDT Gender Identity Not on file Sexual Orientation Not on file Last Filed Vital Signs Vital Sign Reading Time Taken Comments Blood Pressure 148/80 01/15/2024 8:22 AM EDT Pulse 64 01/15/2024 8:22 AM EDT Temperature 36.7 C (98 F) 01/15/2024 8:22 AM EDT Respiratory Rate 15 11/22/2022 1:35 PM EST Oxygen Saturation 97% 01/15/2024 8:22 AM EDT Inhaled Oxygen Concentration - - Weight 57.2 kg (126 lb) 01/15/2024 8:22 AM EDT Height 152.4 cm (5') 01/15/2024 8:22 AM EDT Body Mass Index 24.61 01/15/2024 8:22 AM EDT Plan of Treatment Health Maintenance Due Date Last Done Comments [facility]-Medicare Annual Wellness (AWV) 1945 [facility]-Infant/Child/Adol SDOH Screenings 1945 [facility]- SDOH Screenings 1961 [facility]-Adult SDOH Screenings 1961 [facility]-Bone Density Scan 07/26/2016 07/26/2014 [facility]-Pneumococcal Vaccine: 50+ Years (2 of 2 - PPSV23) 10/10/2018 10/10/2017 [id number] Vaccine (7 - season) 2024 09/05/2023, 07/09/2022, 02/12/2022, Additional history exists [facility]-Depression Screening 01/14/2025 01/15/2024 [facility]-Influenza Vaccine (#1) 06/27/202508/01, 07/20/2022, 07/16/2021, Additional history exists [facility]-DTaP,Tdap,and Td Vaccines (2 - Td or Tdap) 05/29/2031 05/29/2021 [facility]-Zoster Vaccines Completed 06/07/2023, [facility]-Diabetes: Hemoglobin A1C Discontinued 07/03/2023 [facility]-RSV Vaccine: 60+ Years or Completed 08/19/2023 HPV Vaccines Aged Out No longer eligi ble based on patient's age to complete this topic [facility]-HIB Vaccines Aged Out No longer e ligible based on patient's age to complete this topic [facility]-Hepatitis A Vaccines Aged Out No longer eligible based on patient's age to complete this topic [facility]-IPV Vaccines Aged Out No longer e ligible based on patient's age to complete this topic [facility]-Rotavirus Vaccines Aged Out No lo nger eligible based on patient's age to complete this topic Medical Devices Implanted Type Area Material Planner Device Identifier Shelf Expiration Date Model / Serial / Lot Total Knees Bilateral: Knee Breast Implants Bilateral: Breast Iol Bilateral: [place] [address] [facility] Care Teams Chief Ophthalmic Technician Relationship Specialty Start Date End Date Viry Douglas APRN [address] [place] [address] PCP - General 11/22/22
--- OUTSIDE RECORDS SUMMARY | 2025-06-21 12:48 | XMS_ITS | Encounter Summary ---
Author Organization [employer] ([place], [place], [place], [place]) Address [address] [place] [address] Care Team Providers Care [employer] Name Role Phone MisaelViry Bree VIVAS Primary Care Provider [phone] Reason for Referral * Nuclear Medicine (Routine) - Closed Specialty Diagnoses / Procedures Referred By Mando t Referred To Contact Diagnoses Left knee pain, unspecified chronicity Procedures NM bone scan whole body Michael Malcolm MD [address] [address] Phone: tel: fax: Referral ID Status Reason Start Date Expiration Date Visits Re quested Visits Authorized [id number] Closed 04/23/2023 10/20/2023 1 1 Encounter Details Date Type Department Care Team (Late st Contact Info) Description 04/23/2023 Outside Orders [facility] Central Scheduling [address] [place] [id number] Michael Malcolm MD [address] [place], [place] [id number] Left knee pain, unspecified chronicity (Primary Dx) Social History Tobacco Use Types Packs/Day Years Used Date Smoking Tobacco: Never Assessed Food Insecurity Answer Date Recorded Food run out past 12 months Not on file 10/27 Food did not last past 12 months Not on file 11/14/2023 Employment Answer Date Recorded Help finding and keeping a job Not on file 0 11/14/2023 Family and Community Support Answer Julian e Recorded Help with Day to Day Activities Not on file 11/14/2023 Feeling Lonely or Isolated Not on file 11/14 Educational Attainment Answer Date Misael rded Speak language other than Burmese at home Not on file 11/14/2023 Want help with school or training Not on file 11/14/2023 Substance Use Answer Date Recorded Used prescription meds for non-medical reasons N ot on file 11/14/2023 Used illegal drugs past 12 months Not on file 11/14/2023 Comments Unknown Sex and Gender Information Value Date Recorded Sex Assigned at Not on file Legal Sex Female 8:40 PM CDT Gender Identity Not on file Sexual Orientation Not on file documented as of this encounter Plan of Treatment Not on file documented as of this encounter Results * NM bone scan whole body (05/05/2023 2:15 PM EDT) Anatomical Region Laterality Modality Bone Nuclear Medicine 05/06/2023 8:25 AM EDT Impressions 05/06/2023 9:48 AM EDT Increased activity of the right shoulder. Plain film correlation is recommended to exclude fracture or complications of the hardware. Evidence of bilateral total knee arthroplasty without evidence of hardware loosening, fracture or infection. Images reviewed, interpreted, and dictated by Dr. Sterling Umana. Transcribed by Geneva Moreno (Faustino). Narrative 05/06/2023 9:48 AM EDT TOTAL BODY BONE SCAN HISTORY: Left knee pain. COMPARISON: Existing relevant imaging studies: None. COMPARISON: Previous bone scan: None. PROCEDURE: The patient was injected with 27.1 mCi of technetium 99m MDP. Three hour delayed images were obtained. FINDINGS: Renal and soft tissue uptake are normal. There is increased activity in the right shoulder. The patient gives a history of right shoulder surgery. Plain film correlation is recommended to exclude a fracture or complication of the hardware. There are photopenic defects in the knees bilaterally consistent with prior arthroplasty. There is no evidence of hardware loosening. No other abnormal tracer activity is identified to suggest occult fracture or metastatic disease. Procedure Note Sterling Umana MD - 05/06/2023 TOTAL BODY BONE SCAN HISTORY: Left knee pain. COMPARISON: Existing relevant imaging studies: None. COMPARISON: Previous bone scan: None. PROCEDURE: The patient was injected with 27.1 mCi of technetium 99m MDP. Three hour delayed images were obtained. FINDINGS: Renal and soft tissue uptake are normal. There is increased activity in the right shoulder. The patient gives a history of right shoulder surgery. Plain film correlation is recommended to exclude a fracture or complication of the hardware. There are photopenic defects in the knees bilaterally consistent with prior arthroplasty. There is no evidence of hardware loosening. No other abnormal tracer activity is identified to suggest occult fracture or metastatic disease. IMPRESSION: Increased activity of the right shoulder. Plain film correlation is recommended to exclude fracture or complications of the hardware. Evidence of bilateral total knee arthroplasty without evidence of hardware loosening, fracture or infection. Images reviewed, interpreted, and dictated by Dr. Sterling Umana. Transcribed by Geneva Moreno (R). Michael Malcolm MD [facility] [place] Final Result documented in this encounter Visit Diagnoses Diagnosis Left knee pain, unspecified chronicity- Primary Left knee pain, unspecified chronicity documented in this encounter Care Teams [employer] Relationship Specialty Start Date End Date Viry Douglas, ROOMING HOUSE INSPECTOR [address] [place] [address] PCP - General Family Medicine 05/05/23 documented as of this encounter
--- OUTSIDE RECORDS SUMMARY | 2025-06-21 12:48 | XMS_ITS | Encounter Summary ---
Author Organization [facility] ([place], [place], [place], [place]) Address [address] [place] [address] Care Team Providers Care Electric Bath Attendant Name Role Phone Viry Douglas SANGEETHA Primary Care Provider + [phone] Encounter Details Date Type Department Care Team (Late st Contact Info) Description 04/21/2023 Lab Requisition [facility] [address] [place] [address] Michael Malcolm MD [address] [facility] 2nd [place] [address] Pain in left knee; Pain due to internal orthopedic prosthetic devices, implants and grafts, initial encounter (HCC) Social History Tobacco Use Types Packs/Day Years Used Date Smoking Tobacco: Never Assessed Comments Unknown Sex and Gender Information Value Date Recorded Sex Assigned at Not on file Legal Sex Female 8:40 PM CDT Gender Identity Not on file Sexual Orientation Not on file documented as of this encounter Plan of Treatment Not on file documented as of this encounter Procedures Procedure Name Priority Date/Time Associated Diagnosis Comments [facility] DIFFERENTIAL, BODY FLUID Routine 04/21/2023 1:00 PM EDT Pain in left knee Pain due to internal orthopedic prosthetic devices, implants and grafts, initial encounter (HCC) AFB CULTURE AND STAIN Routine 04/21/2023 1:00 PM EDT Pain in left knee Pain due to internal orthopedic prosthetic devices, implants and grafts, initial encounter (HCC) FUNGUS CULTURE W/BRIDGETTE OR EVELIA INK Routine 04/21/2023 1:00 PM EDT Pain in left knee Pain due to internal orthopedic prosthetic devices, implants and grafts, initial encounter (HCC) ANAEROBIC CULTURE Routine 04/21/2023 1:0 0 PM EDT Pain in left knee Pain due to internal orthopedic prosthetic devices, implants and grafts, initial encounter (HCC) BODY FLUID CRYSTALS Routine 04/21/2023 1 :00 PM EDT Pain in left knee Pain due to internal orthopedic prosthetic devices, implants and grafts, initial encounter (HCC) BODY FLUID CULTURE + GRAM STAIN Routine 04/21/2023 1:00 PM EDT Pain in left knee Pain due to internal orthopedic prosthetic devices, implants and grafts, initial encounter (HCC) BODY FLUID CELL COUNT WITH DIFFERENTIAL Routine 04/21/2023 1:00 PM EDT Pain in left knee Pain due to internal orthopedic prosthetic devices, implants and grafts, initial encounter (HCC) documented in this encounter Results * DIFFERENTIAL, BODY FLUID (04/21/2023 1:00 PM EDT) Neutrophils Fluid 0 0 - 25 % 04/21/2023 7:52 PM EDT [facility] Lymphocytes Fluid 18 % 04/21/2023 7:52 PM EDT [facility] Mesothelial, Fluid 40 % 04/21/2023 7:52 PM EDT [facility] MONO/MACROPHAGE FLUID 42 04/21/2023 7:52 PM EDT [facility] Synovial Fluid STRUCTURE OF LEFT KNEE REGION / Unknown 04/21/2023 1:00 PM EDT 04/21/2023 6:41 PM EDT us Michael Malcolm MD BODY FLUIDS AND STOOLS ORDERABLE S Final Result [facility] [address] [place] [address], [facility] [phone] * (ABNORMAL) Body fluid cell count with differential (04/21/2023 1:00 PM EDT) Appearance Hazy(A) Clear 04/21/2023 7:52 PM EDT [facility] Color Yellow 04/21/2023 7:52 PM EDT [facility] BODY FLUID TYPE Synovial 7:52 PM EDT [facility] Auto WBC/Nucleated Cells BF 1,455 u/L 04/21/2023 7:52 PM EDT [facility] Comment: Please refer to specific WBC/Nucleated Cell Count Body Fluid reference ranges below: For Pleural: 0-1000 Peritoneal: 0-1000 Pericardial:0-1000 Synovial: 0-200 Auto RBC BF <3,000 u/L 04/21/2023 7:52 PM EDT [facility] Comment: Please refer to specific RBC Cell Count Body Fluid reference ranges below: Pleural: 0-10,000 Peritoneal: 0-10,000 Pericardial:0-10,000 Synovial:0-30 Synovial Fluid STRUCTURE OF LEFT KNEE REGION / Unknown 04/21/2023 1:00 PM EDT 04/21/2023 6:41 PM EDT Narrative [facility] - 04/21/2023 7:52 PM EDT There is normally no readily obtainable pleural, peritoneal and pericardial fluid, hence normal elements for these potential fluids are not defined. us Michael Malcolm MD BODY FLUIDS AND STOOLS ORDERABLE S Final Result [facility] [address] [place] [address] * Fungus Culture W/BRIDGETTE Or Evelia Ink (04/21/2023 1:00 PM EDT) Result No fungus isolated at 6 weeks. 06/02/2023 7:[address] [facility] BRIDGETTE Prep No fungal elements seen 06/02/2023 7:[address] [facility] Synovial Fluid STRUCTURE OF LEFT KNEE REGION / Unknown 04/21/2023 1:00 PM EDT 04/21/2023 6:41 PM EDT us Michael Malcolm MD MICROBIOLOGY - GENERAL ORDERABLE S Final Result [facility] [address] [place] [address], [facility] [phone] * AFB Culture And Stain (04/21/2023 1:00 PM EDT) Result No Acid Fast Bacilli isolated at 6 weeks 06/02/2023 7:[address] [facility] AFB Smear No acid fast bacilli seen 06/02/2023 7:[address] [facility] Synovial Fluid STRUCTURE OF LEFT KNEE REGION / Unknown 04/21/2023 1:00 PM EDT 04/21/2023 6:41 PM EDT Michael Maloclm MD MICROBIOLOGY - GENERAL ORDERABLE S Final Result [facility] [address] [place] [address], [facility] [phone] * Body fluid crystals (04/21/2023 1:00 PM EDT) BODY FLUID TYPE Synovial 7:55 PM EDT [facility] Ca Phos Claribel, UA Absent Absent 04/21/2023 7:55 PM EDT [facility] Monosodium Urate Absent Absent 04/21/2023 7:55 PM EDT [facility] Synovial Fluid STRUCTURE OF LEFT KNEE REGION / Unknown 04/21/2023 1:00 PM EDT 04/21/2023 6:41 PM EDT Narrative [facility] - 04/21/2023 7:55 PM EDT Under polarized light, corticosteroids may appear identical to monosodium urates or calcium pyrophosphates, so please correlate with any history of intra-articular injection of steroids. us Michael Malcolm MD BODY FLUIDS AND STOOLS ORDERABLE S Final Result [facility] [address] [place] [address], [facility] [phone] * Body Fluid Culture + Gram Stain (04/21/2023 1:00 PM EDT) Result No growth 04/25/2023 7:[address] [facility] Gram Stain Result No organisms seen 04/25/2023 7:[address] [facility] Gram Stain Result Rare WBCs 04/25/2023 7:[address] [facility] Synovial Fluid STRUCTURE OF LEFT KNEE REGION / Unknown 04/21/2023 1:00 PM EDT 04/21/2023 6:41 PM EDT Michael Malcolm MD MICROBIOLOGY - GENERAL ORDERABLE S Final Result Performing Organization Address City/[facility]/ZIP Co de Phone Number [facility] [address] [phone] * Anaerobic Culture (04/21/2023 1:00 PM EDT) Result No Anaerobic growth 04/27/2023 7:[address] [facility] Synovial Fluid STRUCTURE OF LEFT KNEE REGION / Unknown 04/21/2023 1:00 PM EDT 04/21/2023 6:41 PM EDT Michael Malcolm MD MICROBIOLOGY - GENERAL ORDERABLE S Final Result Performing Organization Address City/[facility]/ZIP Co de Phone Number [facility] [address] [phone] documented in this encounter Visit Diagnoses Diagnosis Pain in left knee Pain due to internal orthopedic prosthetic devices, implants and grafts, initial encounter (HCC) documented in this encounter Care Teams Electric Bath Attendant Relationship Specialty Start Date End Date Viry Dougals, MICROSOFT APPLICATION DEVELOPER [address] [place] [address] PCP - General Family Medicine 05/05/23 documented as of this encounter
--- OUTSIDE RECORDS SUMMARY | 2025-06-21 12:48 | XMS_ITS | Clinical Summary ---
Author Organization [facility] Address [address] [place] [address] Care Team Providers Care Boat Builder And Repairer Name Role Phone Viry Douglas APRN Primary Care Provider [phone] Allergies Active Allergy Reactions Criticality Noted Date Comments Cefuroxime Rash Low 07/03/2023 Cisapride Unknown - Low Severity 07/03/2023 Iodine Rash Low 07/03/2023 Levofloxacin Rash Low 07/03/2023 Nitrofurantoin Rash Low 07/03/2023 Sulfa Antibiotics Rash Low 07/03/2023 Medications gabapentin (NEURONTIN) 300 MG capsule Take 1 capsule by mouth Every Morning. 3 Active furosemide (LASIX) 20 MG tablet Take 1 tablet by mouth Daily As Needed (swelling in ankles and feet). Active levothyroxine (SYNTHROID, LEVOTHROID) 75 MCG tablet Take 1 tablet by mouth Daily. 3 Active omeprazole OTC (PriLOSEC OTC) 20 MG EC tablet Take 1 tablet by mouth Daily. Active rOPINIRole (REQUIP) 3 MG tablet Take 1 tablet by mouth Every Night. Active Flaxseed, Linseed, (FLAX SEED OIL PO) Take by mouth Daily. Active calcium carbonate (OS-KAL) 600 MG tablet Take 2 tablets by mouth Daily. Active Cyanocobalamin (VITAMIN B-12 PO) Take 1 tablet by mouth Daily. Active BIOTIN PO Take 1 capsule by mouth Daily. Active gabapentin (NEURONTIN) 300 MG capsule Take 2 capsules by mouth Every Night. Active ropivacaine (NAROPIN) 0.2 % infusion (INFUSYSTEM) 2 mg/hr by Peripheral Nerve route Continuous. 3 Active doxycycline (VIBRAMYCIN) 100 MG capsule Take 1 capsule by mouth 2 (Two) Times a Day. 3 Active traMADol (ULTRAM) 50 MG tabletIndicatio ns:S/P revision of total knee, left Take 1 tablet by mouth Every 6 (Six) Hours As Needed for Moderate Pain. 3 Active oxyCODONE (Roxicodone) 5 MG immediate release tabletIndicatio ns:S/P revision of total knee, left Take 1 tablet by mouth Every 4 (Four) Hours As Needed for Moderate Pain. 0 3 Active ondansetron (Zofran) 4 MG tablet Take 1 tablet by mouth Every 8 (Eight) Hours As Needed for Nausea or Vomiting. 3 Active docusate sodium (Colace) 100 MG capsule Take 1 capsule by mouth 2 (Two) Times a Day. 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 Patient declined 07/17/2023 Q2: How many drinks containi ng alcohol do you have on a typical day when you are drinking? Patient does not drink Q3: How often do you have si x or more drinks on one occasion? Never 07/17/2023 Abuse Screen Answer Date Recorded Unsafe at Home or Work/School Not on file Feels Threatened by Someone? Not on file Does Anyone Keep You from Co ntacting Others or Doint Things Outside the Home? Not on file 07/22/2024 Physical Sign of Abuse Present Not on file 0 07/22/2024 Housing Stability Answer Date Recorded Current Living Arrangements Not on file 06/28 Potentially Unsafe Housing Conditions Not on cami e 07/22/2024 Family and Community Support Answer Julian e Recorded Help with Day-to-Day Activities Not on file 08/04/2023 Lonely or Isolated Not on file 08/04/2023 Employment Answer Date Recorded Do you want help finding or keeping work or a esthela b? Not on file 08/04/2023 Disabilities Answer Date Recorded Concentrating, Remembering, or Making Decisions Difficulty Not on file 07/22/2024 Doing Errands Independently Difficulty Not on fi le 07/22/2024 Education Answer Date Recorded Help with school or training? Not on file Preferred Language Not on file 07/22/2024 Comments Unknown Sex and Gender Information Value Date Recorded Sex Assigned at Not on file Legal Sex Female 10:10 AM EDT Gender Identity Not on file Sexual Orientation Not on file Last Filed Vital Signs Vital Sign Reading Time Taken Comments Blood Pressure 124/48 07/18/2023 10:55 AM EDT Pulse 66 07/18/2023 10:55 AM EDT Temperature 36.4 C (97.5 F) 07/18/2023 10:55 AM EDT Respiratory Rate 18 07/18/2023 10:55 AM EDT Oxygen Saturation 95% 07/18/2023 10:55 AM EDT Inhaled Oxygen Concentration - - Weight 55.8 kg (123 lb) 07/17/2023 11:43 AM EDT Height 147.3 cm (4' 10 ) 07/17/2023 11:43 AM EDT Body Mass Index 25.71 07/17/2023 11:43 AM EDT Plan of Treatment Health Maintenance Due Date Last Done Comments DXA SCAN 07/26/2016 07/26/2014 RSV Vaccine - Adults (1 - 1- dose 75+ series) 2018 Pneumococcal Vaccine 50+ (2 of 2 - PPSV23) 10/10/2018 10/10/2017 ANNUAL PHYSICAL 07/03/2023 COVID-19 Vaccine (2023-2 5 season) 2024 07/09/2022, 02/12/2022, 06/28/2021, Additional history exists INFLUENZA VACCINE 07/27/2025 07/20/2022, , 07/24/2020, Additional history exists TDAP/TD VACCINES (2 - Td or Tdap) 05/29/2031 021 ZOSTER VACCINE Completed 06/07/2023, 03/01/2023 Medical Devices Implanted Type Area Poker Room Manager Device Identifier Shelf Expiration Date Model / Serial / Lot Cmt Bone Simplex/P Tmycin Fdos 10pk - [id number] Implanted:Qty : 4 on 07/17/2023 by Michael Malcolm MD at [facility] Implant Left: Knee SAMSON ROLANDO 11/26/2025 [id number] / / [id number] Stem Fem Triath Cmt 77i32ue - [id number] Implanted:Qty : 1 on 07/17/2023 by Michael Malcolm MD at [facility] Implant Left: Knee SAMSON ROLANDO 03/29/2028 [id number] / / [id number] Ext Stem Triath Kn Totl Cocr Flut 75n33gd - [id number] Implanted:Qty : 1 on 07/17/2023 by Michael Malcolm MD at [facility] Implant Left: Knee SAMSON ROLANDO 05/27/2028 [id number] / / [id number] Aug Fem/Kn Triathlon Dist Sz1 10mm Lt - [id number] Implanted:Qty : 1 on 07/17/2023 by Michael Malcolm MD at [facility] Implant Left: Knee SAMSON ROLANDO 11/22/2026 [id number] / / [id number] Cone Aug Fem/Kn Triathlon Ctr Ti [id number] Lt - [id number] Implanted:Qty : 1 on 07/17/2023 by Michael Malcolm MD at [facility] Implant Left: Knee SAMSON ROLANDO 12/09/2026 [id number] / / [id number] Comp Fem Triath Ts Sz1 Lt - [id number] Implanted:Qty : 1 on 07/17/2023 by Michael Malcolm MD at [facility] Implant Left: Knee SAMSON ROLANDO 09/08/2027 [id number] / / [id number] Aug Fem/Kn Triathlon Totlstbl Dist Sz1 5mm Lt - [id number] Implanted:Qty : 1 on 07/17/2023 by Michael Malcolm MD at [facility] Implant Left: Knee SAMSON ROLANDO 06/06/2027 [id number] / / [id number] Aug Fem/Kn Triathlon Post Sz1 10mm - [id number] Implanted:Qty : 1 on 07/17/2023 by Michael Malcolm MD at [facility] Implant Left: Knee SAMSON ROLANDO 07/15/2027 [id number] / / [id number] Insrt Tib/Kn Triathlon/Ts/ Plus X3 Hxlpe Sz1 11mm - [id number] Implanted:Qty : 1 on 07/17/2023 by Michael Malcolm MD at [facility] Implant Left: Knee SAMSON ROLANDO 11/12/2027 [id number] / / [id number] Dev Contrl Tiss Stratafix Spiral Pdo Bidir 1 14m64er - [id number] Implanted:Qty : 1 on 07/17/2023 by Michael Malcolm MD at [facility] Implant Left: Knee [employer] DIV OF J AND J [id number] / / Plug Bone Restr/Cmt W/Hndl Univ 18.5mm Sm - [id number] - [id number] Implanted:Qty : 1 on 07/17/2023 by Michael Malcolm MD at [facility] Implant Left: Knee SAMSON ROLANDO [id number] 11/01/2027 [id number] / [id number] / [id number] Plug Bone Restr/Cmt W/Hndl Univ 18.5mm Sm - [id number] - [id number] Implanted:Qty : 1 on 07/17/2023 by Michael Malcolm MD at [facility] Implant Left: Knee SAMSON ROLANDO [id number] 11/01/2027 [id number] / [id number] / [id number] Stem Fem Triath Cmt [id number] - [id number] Implanted:Qty : 1 on 07/17/2023 by Michael Malcolm MD at [facility] Implant Left: Knee SAMSON ROLANDO [id number] 02/04/2028 [id number] / / [id number] Aug Cone Tib/Kn Triathlon Rev Symm Sza - [id number] Implanted:Qty : 1 on 07/17/2023 by Michael Malcolm MD at [facility] Implant Left: Knee SAMSON ROLANDO [id number] 11/28/2027 [id number] / / R Baseplt Tib Triath Ts No1 - [id number] Implanted:Qty : 1 on 07/17/2023 by Michael Malcolm MD at [facility] Implant Left: Knee SAMSNO ROLANDO [id number] 06/30/2024 [id number] / / [id number] Aug Tib/Kn Triathlon 1/2blck Rm/Ll Sz1 5mm - [id number] Implanted:Qty : 1 on 07/17/2023 by Michael Malcolm MD at [facility] Implant Left: Knee SAMSON ROLANDO [id number] 10/13/2027 [id number] / / [id number] Aug Tib/Kn Triathlon 1/2blck Lm/Rl Sz1 5mm - [id number] Implanted:Qty : 1 on 07/17/2023 by Michael Malcolm MD at [facility] Implant Left: Knee SAMSON ROLANDO [id number] 11/06/2027 [id number] / / [id number] Procedures Procedure Name Priority Date/Time Associated Diagnosis Comments DEXA BONE DENSITY AXIAL Routine 07/26/2014 1:57 PM EDT from Last 3 Months or Most Recently Relevant to Health Maintenance Results * DEXA BONE DENSITY AXIAL (07/26/2014 1:57 PM EDT) Anatomical Region Laterality Modality Wrist, Hip, L-spine N/A Radiographic Imaging 07/26/2014 1:57 PM EDT Narrative 07/27/2014 8:18 AM EDT DUAL-ENERGY X-RAY ABSORPTIOMETRY (DXA) INDICATION: 69-year-old female for bone mineral densitometry COMPARISON: Baseline PROCEDURE: A DXA scan was performed using a [employer] densitometer. The lumbar spine L1-L4 was evaluated as well as both total hips. The T-score compares the patient's bone mineral density with the peak bone mass of young normal patients. According to criteria established by the World Health Organization, patients with T-scores between 1.0 and 2.5 standard deviations BELOW the mean are osteopenic (low bone mass). Patients with T-scores EQUAL TO OR GREATER than 2.5 standard deviations below the mean are osteoporotic. The Z-score compares the patient bone mineral density with age and sex matched peers. According to the International Society for Clinical Densitometry's 2007 consensus conference: In women prior to menopause and men less than age 50, Z-scores, not T-scores are preferred. A Z-score of -2.0 or lower is defined as below the expected range for age and a Z-score above -2.0 is within the expected range for age. The WHO diagnostic criteria may be applied in women in the menopausal transition. Osteoporosis cannot be diagosed in men under age 50 on the basis of BMD alone. TECHNICAL QUALITY: The quality of the exam is good RESULTS: Lumber Spine: The BMD measured in the L1-L4 region is 1.153 g/cm2. The average T-score is -0.2. The Z-score is 2.0. Total Hip: The BMD measured at the left total proximal femur is 1.013 g/cm2. The T-score is 0.0. The Z-score is 1.9. Femoral Neck: The BMD measured at the left femoral neck is 0.979 g/cm2. The T-score is -0.4. The Z-score is 1.7. Total Hip: The BMD measured at the right total proximal femur is 0.957 g/cm2. The T-score is -0.4. The Z-score is 1.5 Femoral Neck: The BMD measured at the right femoral neck is 0.906 g/cm2. The T-score is -0.9. The Z-score is 1.1. IMPRESSION- Normal bone mineral density in the lumbar spine and both hips All the treatment decisions require clinical judgment and consideration of individual patient factors, including patient preferences, co-morbidities, previous drug use, risk factors not captured in the FRAX model (frailty, falls, vitamin D deficiency, increased bone turnover, interval significant decline in bone density) and possible under or over estimation of fracture risk by FRAX. Approaches to reduce osteoporosis related fracture risk include optimizing calcium and vitamin D status, appropriate weight bearing exercises and fall-prevention measurements. The National Osteoporosis Foundation recommends (http://www.nof.org/hcp/practice/ebseetwf-tmz-mnlbzjop-guidelines/clinic ians-guide) that FDA-approved medical therapies be considered in postmenopaual women and men aged equal or greater than 50 years with : a) hip or vertebral (clinical or morphometric) fracture; b) T-score of -2.5 or less at the spine or hip; c) Ten-year fracture probablity by FRAX of greater than 3% for hip fracture of greater than 20% for major osteoporotic fracture. Secondary causes of bone loss should be evaluated if clinically indicated since the etiology of low BMD cannot be determined by BMD measurement alone. FOLLOWUP: Consider repeating the study in 2-3 years to reassess the patient's status or sooner if there is some new clinical indication. INTERVAL CHANGE: Not applicable. At this facility, the least signifcant change in the BMD at the lumbar spine with 95% confidence is 0.010 gm/cm2 and and 0.012 g/cm2 at the hip. Reading Radiologist- SHARON CHOI Releasing Radiologist- SHARON CHOI Released Date Time- 07/27/14 0819 Research Computing Specialist- LucaPMikey Bucky Brock MD IMG DXA ORDERABLES Final Result from Last 3 Months or Most Recently Relevant to [place] [id number] MEDICARE A & B [facility] OPTIONS Advance Directives * CPR (Attempt to Resuscitate) (Latest Code Status on File) Date Activated Date Inactivated Comments 07/17/2023 6:10 PM 07/18/2023 6:07 PM Question Answer Comments Code Status (Patient has no pulse and is not breathing): CPR (Attempt to Resuscitate) Medical Interventions (Patie nt has pulse or is breathing): Full Level Of Support Discussed With: Patient Care Teams Boat Builder And Repairer Relationship Specialty Start Date End Date Viry Douglas APRN [address] [place] [address] PCP - General Nurse Practitioner 06/26/23
--- OUTSIDE RECORDS SUMMARY | 2025-06-21 12:48 | XMS_ITS | Patient Health Record ---
Author Organization [facility] Chap[facility] MD Address [address] [place] [address] Care Team Providers Care Sales Operations Analyst Name Role Phone Dr Peterson Vuong JR Primary Care Provid er Unavailable Donavon Chaparro Unavailable [phone] Reason For Referral No Information Problems Problem Type SNOMED Code ICD Code Onset Dates Problem Status W/U Status Risk Notes Problem Macroglossia (52481011) Macroglossia (750.15) Active confirmed Problem Hypersomnia with sleep apnea (30215880) Sleep apnea with hypersomnolence (780.53) Active confirmed Plan Of Treatment No Information Insurance Providers Payer Name Payer Address Payer Phone Subscriber Number Group Number Insured Name Patient Relationship to Insured Coverage Start Date Coverage End Date MEDICARE Cigna Gov [facility] [place] [address] [id number] Dalila Hernandez Self - patient is the insured [facility] [address] [place] [address] [id number] Dalila Hernandez Self - patient is the insured Medical (General) History Surgical History Surgery Date(Month/Year) Heart Spine Throat/Neck
--- OUTSIDE RECORDS SUMMARY | 2025-06-21 12:48 | XMS_ITS | Clinical Summary ---
Author Organization [facility] ([place], [place], [place], [place]) Address [address] [place] [address] Care Team Providers Care Laundry Route Driver Name Role Phone Viry Douglas SANGEETHA Primary Care Provider + [phone] Allergies No known active allergies Social History Tobacco Use Types Packs/Day Years [...] Date Misael rded Speak language other than [place] at home Not on file 11/14/2023 Want [...] on file Sexual Orientation Not on file Plan of Treatment Health Maintenance Due Date Last Done Comments DXA SCAN 1945 Depression Screening (12+) 1955 Tobacco Cessation Counseling and Screening (12+) 1955 Medicare Initial AWV [id number] 05/28/2009 Respiratory Syncytial Virus (RSV) Adult or (1 - 1-dose 75+ series) 2018 Pneumococcal 50+ years (2 of 2 - PPSV23) 10/10/2018 10/10/2017 Shingles Vaccine (Zoster) (2 of 2) 04/26/20232022 COVID-19 VACCINE (5 - 4-2 5 season) 2024 02/12/2022, 06/28/2021, 12/21/2020, Additional history exists Falls Risk Screening 10/27/2024 Influenza Vaccine (#1) 2025 , 07/16/2021, 07/24/2020, Additional history exists DTAP/TDAP/TD VACCINES (2 - T d or Tdap) 05/29/2031 05/29/2021 Insurance [place] [id number] MEDICARE PART A B HEALTH CLAIMS Care Teams Laundry Route Driver Relationship Specialty Start Date End Date Viry Douglas, [employer] [address] [place] [id number] PCP - General Family Medicine 05/05/23
--- OUTSIDE RECORDS SUMMARY | 2025-06-21 12:48 | XMS_ITS | Referral Summary ---
Author Organization [employer] ([place], [place], [place], [place]) Address [address] [place], [place] [id number] Care Team Providers Care Package Drier Name Role Phone Viry Douglas SANGEETHA Primary Care Provider + [phone] Allergies No known active allergies Social History [...] Date Misael rded Speak language other than [place] at home Not on file 11/14/2023 Want [...] Orientation Not on file Plan of Treatment Not on file Insurance MEDICARE PART A B [id number] CLAIMS Care Teams Package Drier Relationship Specialty Start Date End Date Viry Douglas, PLASTER DIE MAKER [address] [place] [id number] PCP - General Family Medicine 05/05/23
== END 2025-06-21 23:59 | disposition home or self-care (01) ==
LOC: RAD 12:46
PROVIDERS: PCP Nurse Practitioner Family; Visit Provider Nurse Practitioner Family
DX: N63.14 Unspecified lump in the right breast, lower inner quadrant (principal); N63.41 Unspecified lump in right breast, subareolar; R92.321 Mammographic fibroglandular density, right breast; R92.8 Other abnormal and inconclusive findings on diagnostic imaging of breast
CPT/HCPCS: 76641; 77061; 77065; G0279